=== PATIENT | male | born 1970 | race Caucasian/White ===

== ENCOUNTER 2017-01-23 04:35 | Emergency (ER) | payer SELFPAY ==
[~2017-01-23] VITALS: Ht 182.9 cm; Wt 100.0 kg
[~2017-01-23 04:35] MED LIST: DICL75 PO; HYDR-3534 PO; METH750T2 PO
[2017-01-23 04:44] VITALS: BP 143/84; PULSE 92; RESP 14; TEMP 98.5; O2SAT 97
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
[2017-01-23 07:05] VITALS: BP 121/76; PULSE 69; RESP 18; O2SAT 96
--- NOTE | 2017-01-23 11:47 | PD ---
Physical Exam Narrative Patient was seen by ED physician and medically cleared. Patient was observed in the ED. Patient now awake alert oriented 3 and steady on his feet. He wants to go home. Data Data Last Documented VS Vital Signs Date Time Temp Pulse Resp B/P (MAP) Pulse Ox O2 Delivery O2 Flow Rate FiO2 01/23/17 07:05 69 18 121/76 (91) 96 Room Air 01/23/17 04:44 98.5 Orders Orders Ed Discharge Order (01/23/17 11:44) [facility] Supervised Visit with SERINA: No Diagnosis Primary Impression: Drug overdose Qualified Codes: T50.901A - Poisoning by unspecified drugs, medicaments and biological substances, accidental (unintentional), initial encounter Patient Instructions: General Instructions Additional Instruction: Advised [facility]. Follow-up as needed. Med/Other Pt SpecificInfo: No Meds Exist/No RX given Scripts No Active Prescriptions or Reported Meds Disposition: 01 DISCHARGE HOME Condition: Stable Marty Gleason MD Jan 23, 2017 11:47
== END 2017-01-23 12:56 | disposition home or self-care (01) ==
LOC: NEPE 04:35
DX: T40.601A Poisoning by unspecified narcotics, accidental (unintentional), initial encounter (principal); F17.200 Nicotine dependence, unspecified, uncomplicated
CPT/HCPCS: 99283

== ENCOUNTER 2017-11-22 15:47 | Inpatient (IN) ==
[2017-11-22] MEDS ORDERED: Sod Chloride 0.9% Inj 1,000 ML IV.SIG ONE (16:46)
--- NOTE | 2017-11-22 16:52 | ED ---
HPI General Chief Complaint: Abdominal Pain Stated Complaint: abd pain/syncope Time Seen by Provider: 11/22/17 16:46 Source: patient Mode of arrival: ambulatory Limitations: no limitations History of Present Illness HPI narrative: 47-year-old male patient with history of diverticulitis, status post hemicolectomy done by Dr. Colmenares in the past, ventral hernias, presents to the ER today because he started having worsening abdominal pains which are midline, nausea, vomiting, and states he has had some bouts of diarrhea as well. He states that he has not been able to eat very well for the past 2 days. He denies any fevers or any other symptoms. Related Data Home Medications Medication Instructions Recorded Confirmed No Known Home Medications 11/22/17 11/22/17 Allergies Allergy/AdvReac Type Severity Reaction Status Date / Time No Known Allergies Allergy Verified 11/22/17 16:40 Review of Systems ROS: all other systems reviewed are negative PMFSH History History Provided By: Patient Medical History Medical History Diverticula of colon (Acute) Surgical History Surgical History H/O hemicolectomy (Acute) Social History Social History Substance History: No History of Abuse Second Hand Smoke Exposure: Yes Smoking Status: Current every day smoker Tobacco Type: Cigarettes How Often Do You Have a Drink Containing Alcohol: Never Recent Travel in [place] within the Last 8 Weeks: No Recent Out of Country Travel within the Last 8 Weeks: No Exam Narrative Exam Narrative: GENERAL: Well-developed middle-age male patient currently in moderate distress. Awake and oriented 3. SKIN: Focused skin assessment warm/dry. HEAD: Atraumatic. Normocephalic. EYES: Pupils equal and round. No scleral icterus. No injection or drainage. ENT: No nasal bleeding or discharge. Mucous membranes pink and moist. NECK: Trachea midline. No JVD. CARDIOVASCULAR: Regular rate and rhythm. No murmur appreciated. RESPIRATORY: No accessory muscle use. Clear to auscultation. Breath sounds equal bilaterally. GASTROINTESTINAL: Abdomen soft, diffuse abdominal tenderness without guarding or rebound, nondistended. Hepatic and splenic margins not palpable. MUSCULOSKELETAL: No obvious deformities. No clubbing. No cyanosis. No edema. NEUROLOGICAL: Awake and alert. No obvious cranial nerve deficits. Motor grossly within normal limits. Normal speech. PSYCHIATRIC: Appropriate mood and affect; insight and judgment normal. Course Initial Documented Vital Signs Temperature 97.8 F 11/22/17 16:34 Pulse Rate 80 11/22/17 16:34 Respiratory Rate 17 11/22/17 16:34 Blood Pressure 136/90 11/22/17 16:34 Pulse Oximetry 97 11/22/17 16:34 Last Documented Vital Signs Temperature 97.8 F 11/22/17 16:34 Pulse Rate 91 H 11/22/17 20:00 Respiratory Rate 16 11/22/17 20:00 Blood Pressure 124/80 11/22/17 20:00 Pulse Oximetry 94 L 11/22/17 20:00 Sign Out Sign Out Data: Patient Sign Out occurred on 11/22/17 at 19:35. Patient's care was discussed, and care was transferred from Padmini Boyd MD to Jr Vaughn. Sign Out Comment: Case signed out to Dr. Vaughn at 7 PM awaiting CAT scan, disposition based on CAT scan. Last updated by Padmini Boyd MD at 11/22/17 19:18 Post-Handoff Eval: pt CT SHow early SBO vs incarcerated hernia I was able to manually move bowel butthey came right back out Spoke to Dr Wolff surgery and he will take to OR mostlikely. ADmitted to [facility] Medical Decision Making [facility] Narrative Medical Screen Exam Complete: Yes Emergency Medical Condition: Yes Differential Diagnosis Differential Diagnosis: Gastroenteritis versus pancreatitis versus obstruction versus dehydration versus electrolyte abnormalities Lab Data Result diagrams: 11/22/17 20:30 11/22/17 17:25 Lab Results 11/22/17 11/22/17 11/22/17 Range/Units 17:25 17:25 20:30 WBC 7.0 6.7 (4.0-11.0) th/mm3 RBC 5.47 4.77 (4.50-5.90) mil/mm3 Hgb 15.4 13.7 (13.0-17.0) gm/dL Hct 45.6 39.3 (39.0-51.0) % MCV 83.3 82.4 (80.0-100.0) fL MCH 28.2 28.8 (27.0-34.0) pg MCHC 33.8 35.0 (32.0-36.0) % RDW 13.7 13.9 (11.6-17.2) % Plt Count 184 156 (150-450) th/mm3 MPV 8.2 8.0 (7.0-11.0) fL Neut % (Auto) 79.7 H 76.0 H (16.0-70.0) % Lymph % (Auto) 12.9 15.6 (9.0-44.0) % Mcnairy % (Auto) 6.6 7.6 (0.0-8.0) % Eos % (Auto) 0.7 0.5 (0.0-4.0) % Baso % (Auto) 0.1 0.3 (0.0-2.0) % Neut # (Auto) 5.6 5.1 (1.8-7.7) th/mm3 Lymph # (Auto) 0.9 L 1.0 (1.0-4.8) th/mm3 Mcnairy # (Auto) 0.5 0.5 (0.0-0.9) th/mm3 Eos # (Auto) 0.1 0.0 (0.0-0.4) th/mm3 Baso # (Auto) 0.0 0.0 (0.0-0.2) th/mm3 WBC Differential . . Differential Comment Auto diff final Auto diff final Sodium 142 (136-145) meq/L Potassium 3.9 (3.5-5.1) meq/L Chloride 106 (98-107) meq/L Carbon Dioxide 28.4 (21.0-32.0) meq/L Anion Gap 8 (5-15) meq/L BUN 20 H (7-18) mg/dL Creatinine 0.94 (0.60-1.30) mg/dL Estimated GFR 86 L (>89) mL/min Random Glucose 125 H (74-106) mg/dL Calcium 9.0 (8.5-10.1) mg/dL Total Bilirubin 0.6 (0.2-1.0) mg/dL AST 18 (15-37) U/L ALT 28 (12-78) U/L Alkaline Phosphatase 76 (45-117) U/L Total Protein 7.8 (6.4-8.2) g/dL Albumin 3.8 (3.4-5.0) g/dL Lipase 97 (73-393) U/L Imaging Data Radiologist's impression: Abdomen/Pelvis CT 11/22/17 16:46 CONCLUSION: 1. Anterior abdominal wall hernia located just to the right of the umbilicus containing fluid-filled loops of bowel wall thickening and air-fluid levels. This is of concern for possible strangulation and early obstruction. 2. Second larger abdominal wall hernia containing multiple loops of bowel. 3. Nonspecific bowel gas pattern. Discharge Plan Discharge Disposition Patient Disposition: 30 Still Patient Physicians Team ED Provider: Jr Vaughn Primary Care Provider: Primary Care KateyiArabella Rxs /Orders / Referrals /Forms Prescriptions: No Action No Known Home Medications RF: 0 Discharge Interventions Interventions: Vital Signs Last Done: 11/22/17 20:00 Status ED Status: Admitted Observation Patient
[2017-11-22 17:34] LABS: Baso % (Auto) 0.1 % (0.0-2.0); Eos # (Auto) 0.1 th/mm3 (0.0-0.4); Eos % (Auto) 0.7 % (0.0-4.0); Hematocrit 45.6 % (39.0-51.0); Hemoglobin 15.4 gm/dL (13.0-17.0); Lymph # (Auto) 0.9 th/mm3 (1.0-4.8); Lymph % (Auto) 12.9 % (9.0-44.0); Mean Corpuscular HGB Conc 33.8 % (32.0-36.0); Mean Corpuscular Hemoglobin 28.2 pg (27.0-34.0); Mean Corpuscular Volume 83.3 fL (80.0-100.0); Mean Platelet Volume 8.2 fL (7.0-11.0); Mono # (Auto) 0.5 th/mm3 (0.0-0.9); Mono % (Auto) 6.6 % (0.0-8.0); Neut # (Auto) 5.6 th/mm3 (1.8-7.7); Neut % (Auto) 79.7 % (16.0-70.0); Platelet Count 184 th/mm3 (150-450); Red Blood Count 5.47 mil/mm3 (4.50-5.90); Red Cell Distribution Width 13.7 % (11.6-17.2)
[2017-11-22 17:55] LABS: Alanine Aminotransferase 28 U/L (12-78); Albumin 3.8 g/dL (3.4-5.0); Anion Gap 8 meq/L (5-15); Aspartate Aminotransferase 18 U/L (15-37); Blood Urea Nitrogen 20 mg/dL (7-18); Carbon Dioxide 28.4 meq/L (21.0-32.0); Chloride 106 meq/L (98-107); Glomerular Filtration Rate 86 mL/min (>89); Glucose,Random 125 mg/dL (74-106); Lipase 97 U/L (73-393); Potassium 3.9 meq/L (3.5-5.1); Sodium 142 meq/L (136-145)
[2017-11-22 17:58] LABS: Alkaline Phosphatase 76 U/L (45-117); Total Protein 7.8 g/dL (6.4-8.2)
--- NOTE | 2017-11-22 19:55 | CT ---
EXAM DATE: 11/22/2017 7:44 PM EDT AGE/SEX: 47 years / Male INDICATIONS: Right lower quadrant abdominal pain. CLINICAL DATA: This is the patient's initial encounter. Patient reports that signs and symptoms have been present for 1 week and indicates a pain score of 5/10. MEDICAL/SURGICAL HISTORY: Ulcerative colitis. Umbilical Hernia. Colon resection. ORAL CONTRAST: No oral contrast ingested. RADIATION DOSE: 12.09 CTDI (mGy) COMPARISON: No prior exams available for comparison. TECHNIQUE: Multiple contiguous axial images were obtained through the abdomen and pelvis following b olus infusion of 95 ml Omnipaque 350 (iohexol) nonionic water-soluble contrast as a single exam dos e. No oral contrast ingested. Using automated exposure control and adjustment of the mA and/or kV ac cording to patient size, radiation dose was kept as low as reasonably achievable to obtain optimal di agnostic quality images. DICOM format image data is available electronically for review and comparis on. FINDINGS: Lower Lungs: The visualized lower lungs are clear. Liver: The liver has a homogeneous density without space-occupying lesion. There is no dilation of th e biliary tree. The gallbladder is unremarkable in appearance. Spleen: Homogeneous density without enlargement. Pancreas: Unremarkable without mass or calcification. Kidneys: Normal in size and shape. No evidence of mass or hydronephrosis. Adrenal Glands: Unremarkable. Aorta: The aorta and proximal iliac vessels are grossly unremarkable without aneurysmal dilation. Bowel/Mesentery: There are multiple loops of nondilated air-containing small bowel with multiple air -fluid levels. The bowel adjacent to the lower hernia demonstrates wall thickening and small air-flui d levels. There is no free air or fluid. Abdominal Wall: There is moderate size anterior abdominal wall hernia containing multiple loops of b owel and omentum. The opening of the hernia measures up to approximately 5.6 cm. Just below this leve l is a second focal hernia containing loops of fluid-filled bowel with apparent mild wall thickening. The opening measures approximately 3.3 cm in diameter. This is located just to the right of the umbi licus. Retroperitoneum: No evidence of adenopathy in the retrocrural, para-aortic, or deep pelvic regions. Bladder: Contours are smooth. Reproductive Organs: No abnormal masses or calcifications seen. Inguinal: The inguinal region is unremarkable without evidence of adenopathy. Bony Structures: Unremarkable. CONCLUSION: 1. Anterior abdominal wall hernia located just to the right of the umbilicus containing fluid-filled loops of bowel wall thickening and air-fluid levels. This is of concern for possible strangulation a nd early obstruction. 2. Second larger abdominal wall hernia containing multiple loops of bowel. 3. Nonspecific bowel gas pattern. Electronically signed by: Lawrence Bundy MD 11/22/2017 7:53 PM EDT
[2017-11-22] MEDS ORDERED: Morphine Inj 4 MG/ML Vial IV.PUSH ONE (20:18)
[2017-11-22] MEDS ORDERED: Dextrose 5%/NaCl 0.45% Inj 1,000 ML IV.CONT SCH (20:30)
[2017-11-22 20:47] LABS: Baso % (Auto) 0.3 % (0.0-2.0); Eos % (Auto) 0.5 % (0.0-4.0); Hematocrit 39.3 % (39.0-51.0); Hemoglobin 13.7 gm/dL (13.0-17.0); Lymph % (Auto) 15.6 % (9.0-44.0); Mean Corpuscular Hemoglobin 28.8 pg (27.0-34.0); Mean Corpuscular Volume 82.4 fL (80.0-100.0); Mono # (Auto) 0.5 th/mm3 (0.0-0.9); Mono % (Auto) 7.6 % (0.0-8.0); Neut # (Auto) 5.1 th/mm3 (1.8-7.7); Platelet Count 156 th/mm3 (150-450); Red Blood Count 4.77 mil/mm3 (4.50-5.90); Red Cell Distribution Width 13.9 % (11.6-17.2); White Blood Count 6.7 th/mm3 (4.0-11.0)
[2017-11-22] MEDS ORDERED: Acetaminophen 325 MG Tablet PO PRN (22:37)
[2017-11-22] MEDS ORDERED: HYDROmorphone PF Inj 2 MG/ML Vial IV.PUSH PRN (22:39)
--- NOTE | 2017-11-22 22:42 | P.HPIM ---
History of Present Illness Service: [facility] Primary Care Physician: No Primary Care Physician Chief Complaint: abdominal pain History of Present Illness: 47 y/o male with a history of diverticulosis and a colectomy presented to the ED with complaints of abdominal pain for 2 days. Patient states his pain is sharp, 10/10, constant, throughout his whole abdomen with no radiation and associated nausea. He states the morphine only helped a little and not for long. Denies any chest pain, sob, fever or chills. Review of Systems All other systems reviewed negative except as stated in HPI [facility] - History History Provided By: Patient - Medical History Medical History: Medical History (Last Reviewed 11/22/17 @ 23:43 by CHRISTY Rolle) Diverticula of colon - Surgical History Surgical History: Surgical History (Last Reviewed 11/22/17 @ 23:43 by CHRISTY Rolle) H/O hemicolectomy - Family History Family History: Family History (Last Reviewed 11/22/17 @ 23:43 by CHRISTY Rolle) Other Family history not obtainable due to adoption - Social History I have reviewed the patient's Social History: Yes - Tobacco History Second Hand Smoke Exposure: Yes Tobacco Use In Past 30 Days: Yes Smoking Status: Current every day smoker Tobacco Type: Cigarettes - Alcohol History How Often Do You Have a Drink Containing Alcohol: Never - Substance Use History Substance History: No History of Abuse - Travel History Recent Travel in the [place] Within the Last 8 Weeks: No Recent Travel Out of the Country Within the Last 8 Weeks: No - Immunization History Tetanus Immunization: <5 Years Medications and Allergies Active Medications: Active Medications Acetaminophen (Tylenol) 650 mg PO Q4H PRN PRN Reason: Temp > 100.4 Hydromorphone HCl (Dilaudid Pf Inj) 1 mg IV.PUSH Q4H PRN PRN Reason: Pain 1 to 10 Dextrose/Sodium Chloride (D5w/1/2 Ns Inj) 1,000 mls @ 125 mls/hr IV.CONT .Q8H KERRY Last Admin: 11/22/17 20:33 Dose: 125 mls/hr Sodium Chloride (Ns Inj) 1,000 mls @ 100 mls/hr IV.CONT .Q10H KERRY Ondansetron HCl (Zofran Inj) 4 mg IV.PUSH Q6H PRN PRN Reason: NAUSEA OR VOMITING Sodium Chloride (Ns Flush) 2 ml IV.FLUSH PRN PRN PRN Reason: FLUSH AFTER USING IV ACCESS Last Admin: 11/22/17 20:33 Dose: 2 ml Allergies Allergy/AdvReac Type Severity Reaction Status Date / Time No Known Allergies Allergy Verified 11/22/17 16:40 Home Medications Medication Instructions Recorded Confirmed Type No Known Home Medications 11/22/17 11/22/17 History Exam Vital signs: Vital Signs 11/22/17 16:34 11/22/17 20:00 Temperature 97.8 F Pulse Rate 80 91 H Respiratory Rate 17 16 Blood Pressure 136/90 124/80 Pulse Oximetry 97 94 L Intake & Output 11/22/17 11/22/17 11/23/17 06:59 18:59 06:59 Intake Total 1000 / 1000 Balance 1000 / 1000 Weight 117.934 kg Intake: IV 1000 / 1000 NS Inj 1,000 ML @ Wide Open IV. 1000 / 1000 SIG BOLUS ONE Rx#:[id number] Narrative: GENERAL: This is a well-nourished, well-developed patient, in no apparent distress. CARDIOVASCULAR: Regular rate and rhythm without murmurs, gallops, or rubs. RESPIRATORY: Clear to auscultation. Breath sounds equal bilaterally. No wheezes , rales, or rhonchi. GASTROINTESTINAL: Abdomen soft, tender to palpation, nondistended. Hypo active bowel sounds MUSCULOSKELETAL: Extremities without clubbing, cyanosis, or edema. NEURO: Alert & Oriented x4 to person, place, time, situation. Moves all ext x4 Results - Labs CBC & Chem 7: 11/22/17 20:30 11/22/17 17:25 Labs: Short CBC 11/22/17 11/22/17 Range/Units 17:25 20:30 WBC 7.0 6.7 (4.0-11.0) th/mm3 Hgb 15.4 13.7 (13.0-17.0) gm/dL Hct 45.6 39.3 (39.0-51.0) % Plt Count 184 156 (150-450) th/mm3 BMP 11/22/17 17:25 Sodium 142 Potassium 3.9 Chloride 106 Carbon Dioxide 28.4 BUN 20 H Creatinine 0.94 Calcium 9.0 Liver Function 11/22/17 Range/Units 17:25 Total Bilirubin 0.6 (0.2-1.0) mg/dL AST 18 (15-37) U/L ALT 28 (12-78) U/L Alkaline Phosphatase 76 (45-117) U/L Albumin 3.8 (3.4-5.0) g/dL - Imaging Impressions Abdomen/Pelvis CT 11/22/17 16:46 CONCLUSION: 1. Anterior abdominal wall hernia located just to the right of the umbilicus containing fluid-filled loops of bowel wall thickening and air-fluid levels. This is of concern for possible strangulation and early obstruction. 2. Second larger abdominal wall hernia containing multiple loops of bowel. 3. Nonspecific bowel gas pattern. Caprini VTE Risk Assessment Caprini VTE Risk Assessment: No/Low Risk (score <= 1) Caprini Risk Assessment Model: Point Value = 1 Point Value = 2 Point Value = 3 Point Value = 5 Age 41-60 Minor surgery BMI > 25 kg/m2 Swollen legs Varicose veins or History of unexplained or recurrent spontaneous Oral contraceptives or hormone replacement Sepsis (< 1 month) Serious lung disease, including pneumonia (< 1 month) Abnormal pulmonary function Acute myocardial infarction Congestive heart failure (< 1 month) History of inflammatory bowel disease Medical patient at bed rest Age 61-74 Arthroscopic surgery Major open surgery (> 45 min) Laparoscopic surgery (> 45 min) Malignancy Confined to bed (> 72 hours) Immobilizing plaster cast Central venous access Age >= 75 History of VTE Family history of VTE Factor V Leiden Prothrombin [id number] Lupus anticoagulant Anticardiolipin antibodies Elevated serum homocysteine Heparin-induced thrombocytopenia Other congenital or acquired thrombophilia Stroke (< 1 month) Elective arthroplasty Hip, pelvis, or leg fracture Acute spinal cord injury (< 1 month) Prophylaxis Regimen: Total Risk Factor Score Risk Level Prophylaxis Regimen 0-1 Low Early ambulation 2 Moderate Order ONE of the following: *Sequential Compression Device (SCD) *Heparin 5000 units SQ BID 3-4 Higher Order ONE of the following medications: *Heparin 5000 units SQ TID *Enoxaparin/Lovenox 40 mg SQ daily (WT < 150 kg, CrCl > 30 mL/min) *Enoxaparin/Lovenox 30 mg SQ daily (WT < 150 kg, CrCl > 10-29 mL/min) *Enoxaparin/Lovenox 30 mg SQ BID (WT < 150 kg, CrCl > 30 mL/min) AND/OR *Sequential Compression Device (SCD) 5 or more Highest Order ONE of the following medications: *Heparin 5000 units SQ TID (Preferred with Epidurals) *Enoxaparin/Lovenox 40 mg SQ daily (WT < 150 kg, CrCl > 30 mL/min) *Enoxaparin/Lovenox 30 mg SQ daily (WT < 150 kg, CrCl > 10-29 mL/min) *Enoxaparin/Lovenox 30 mg SQ BID (WT < 150 kg, CrCl > 30 mL/min) AND *Sequential Compression Device (SCD) Assessment and Plan - Plan SBO, lactic 2.[address] reviewed and shows Anterior abdominal wall hernia located just to the right of the umbilicus containing fluid-filled loops of bowel wall thickening and air-fluid levels. -Consult general surgery, Dr. Wolff plans to take patient to OR in AM -NPO, IVF -Pain management with IV Dilaudid DVT prophylaxis: SCDs Discussed Condition With: Patient, RN and ED physician
[2017-11-22 23:26] LABS: Bilirubin,Urine Negative (Negative); Clarity,Urine Clear (Clear); Color,Urine Yellow (Yellw/Straw); Glucose,Urine (UA) Negative (Negative); Leukocyte Esterase,Urine Negative (Negative); Mucus,Urine Few /lpf (Occasional); Nitrite,Urine Negative (Negative)
[2017-11-22] MEDS: Sod Chloride 0.9% Inj 1,000 ML IV.CONT SCH (23:29)
[2017-11-23] MEDS ORDERED: HYDROmorphone PF Inj 2 MG/ML Vial IV.PUSH ONE (00:56)
[2017-11-23 07:55] LABS: Baso % (Auto) 0.4 % (0.0-2.0); Eos # (Auto) 0.1 th/mm3 (0.0-0.4); Eos % (Auto) 3.1 % (0.0-4.0); Hematocrit 39.7 % (39.0-51.0); Hemoglobin 13.5 gm/dL (13.0-17.0); Lymph # (Auto) 1.5 th/mm3 (1.0-4.8); Lymph % (Auto) 31.4 % (9.0-44.0); Mean Corpuscular HGB Conc 33.9 % (32.0-36.0); Mean Corpuscular Hemoglobin 28.4 pg (27.0-34.0); Mean Corpuscular Volume 83.8 fL (80.0-100.0); Mean Platelet Volume 7.9 fL (7.0-11.0); Mono # (Auto) 0.4 th/mm3 (0.0-0.9); Mono % (Auto) 7.7 % (0.0-8.0); Neut # (Auto) 2.7 th/mm3 (1.8-7.7); Neut % (Auto) 57.4 % (16.0-70.0); Platelet Count 140 th/mm3 (150-450); Red Blood Count 4.74 mil/mm3 (4.50-5.90); Red Cell Distribution Width 14.2 % (11.6-17.2); White Blood Count 4.7 th/mm3 (4.0-11.0)
[2017-11-23 08:26] LABS: Anion Gap 6 meq/L (5-15); Blood Urea Nitrogen 13 mg/dL (7-18); Calcium 7.8 mg/dL (8.5-10.1); Carbon Dioxide 26.4 meq/L (21.0-32.0); Chloride 108 meq/L (98-107); Glomerular Filtration Rate Greater Than 89 mL/min (>89); Glucose,Random 99 mg/dL (74-106); Potassium 3.8 meq/L (3.5-5.1); Sodium 140 meq/L (136-145)
[2017-11-23] MEDS: Sod Chloride 0.9% Inj 1,000 ML IV.CONT SCH (08:46)
[2017-11-23] MEDS: HYDROmorphone PF Inj 2 MG/ML Vial IV.PUSH PRN ×4 (08:47→23:50)
[2017-11-23] MEDS ORDERED: Metoprolol Tartrate 25 MG Tablet PO ONE (11:07)
[2017-11-23] MEDS ORDERED: Chlorhexidine Gluconate 2% 1 Pack (2 Cloths) TOPICAL ONE (11:07)
[2017-11-23] MEDS ORDERED: Sodium Chlor 0.9% Inj 500 ML IV.SIG SCH (12:00)
--- NOTE | 2017-11-23 13:34 | ECG ---
Date Performed: 11/23/2017 Time Performed: 01:48:38 PTAGE: 47 years EKG: Sinus rhythm RIGHT BUNDLE BRANCH BLOCK ABNORMAL ECG NO PREVIOUS TRACING DOCTOR: Isaiah Jiménez Interpretating Date/Time 11/23/2017 13:30:15
--- NOTE | 2017-11-23 14:43 | MB ---
cc: Ancelmo Wolff MD DATE: 11/23/2017 CHIEF COMPLAINT: Abdominal wall incarcerated hernia. Consultation Dr. Israel Echols HISTORY OF PRESENT ILLNESS: The patient is a 47-year-old male with history of diverticulitis, status post colectomy 6 years ago. The patient noted about 6 months following procedure to developed an incisional abdominal wall hernia. He states this hernia has been there for multiple years now and intermittently decompresses and bulges out. He states that he has had some pain intermittently with this hernia; however, the last 3 days he has noted the pain has been a significant, severe and persistent. He states the pain has been a 9/10 at times, currently are 4/10 and continuing to get worse. He denies any vomiting, but does have associated nausea. He states the pain is sharp, it is worse with movement, better with lying still. He has a little improvement with morphine pain control. Surgery was consulted for further evaluation. On my exam, the patient has a normal leukocytosis. CT scan evaluation showing a partial colon incarcerated within hernia. PAST MEDICAL HISTORY: Diverticulitis status post sigmoid colectomy. PAST SURGICAL HISTORY: Exploratory laparotomy, left hemicolectomy. SOCIAL HISTORY: Positive smoking, occasional ETOH. Denies IVDA. ALLERGIES: NO KNOWN DRUG ALLERGIES. MEDICATIONS: See MAR. FAMILY HISTORY: The patient is adopted and is unknown to his mother and father family history. REVIEW OF SYSTEMS: GENERAL: Denies fevers, chills. HEENT: Denies eye pain, ear pain. NECK: No swelling or pain. LUNGS: Denies cough or wheeze. HEART: Denies palpitations or chest pain. ABDOMEN: Complains of nausea. Denies vomiting. GENITOURINARY: Denies dysuria or hematuria. ENDOCRINE: Denies polyuria, polydipsia. INTEGUMENT: Denies any masses or lesions. NEUROLOGIC: Denies any numbness or tingling. PSYCHIATRIC: Denies change in mood and sensorium. PHYSICAL EXAMINATION: GENERAL: The patient in no acute distress. VITAL SIGNS: Temperature 97.8, pulse 80, respirations 17, blood pressure 136/90, saturation 97%. HEENT: Pupils equal, round, reactive. NECK: Supple. Trachea midline. LUNGS: Clear to auscultation, bilateral expansion. HEART: S1, S2. Regular rate and rhythm. ABDOMEN: Soft. Positive tenderness to palpation, a central midline incisional scar, nonreducible hernia. No erythema. Mild tenderness to palpation. No peritoneal signs. EXTREMITIES: Warm and well perfused. NEUROLOGIC: GCS of 15, 5/5 motor in all extremities. INTEGUMENT: As above. No masses, other than hernia or lesions. LABORATORY AND DIAGNOSTIC DATA: 1. WBC 4.7, hemoglobin 13.5, hematocrit 39.7, platelets 140. Sodium 140, potassium 3.8, chloride 108, BUN is 13, creatinine 0.7. Lactate is 2. 2. CT reviewed by myself showing incarceration of ventral incisional hernia with colon partial obstruction. PLAN: After a full workup, the patient with the above mentioned issues. At this point, the patient does have incarceration of colon in the hernia, questionable strangulation on scan; however, clinically does not appear so with a normal white count and pain is mild to moderate. Therefore, a discussion with the patient; recommend incisional hernia repair. The patient understands and agrees and would like to proceed. Discussed with him the possibility of doing laparoscopic; however, if adhesions prevent this, may have to convert to open procedure. He is understanding and agrees. Possible bowel resection pending the viability in the bowel. This has been a longstanding hernia and could have significant scar tissue. I have discussed this with the patient in detail. I will plan for a possible hernia repair, possible mesh, possible open. MD SULLY Geller/akshat , 01:26 PM , 01:37 PM TATO
[2017-11-23] MEDS ORDERED: Bupivacaine/Epinephrine Inj 0.25% 50 ML Vial ONE (15:41)
[2017-11-23] MEDS ORDERED: Lidocaine PF 1% Inj 5 ML Syringe INFILTRATN ONE (15:52)
--- NOTE | 2017-11-23 16:10 | P.PN ---
Subjective Interval history: Patient is seen lying comfortably in bed. is at bedside. He reports intermittent abdominal pain at the site of his hernia. Surgery is scheduled for this afternoon. Denies chest pain or shortness of breath. He has no nausea or vomiting, he has been n.p.o. He is urinating normally. Has not had a bowel movement. Physical Exam Vital signs: Vital Signs 11/22/17 16:34 11/22/17 20:00 11/22/17 23:00 Temperature 97.8 F Pulse Rate 80 91 H 83 Respiratory Rate 17 16 16 Blood Pressure 136/90 124/80 135/71 Pulse Oximetry 97 94 L 16 L 11/23/17 00:00 11/23/17 02:00 11/23/17 02:26 Temperature 98.4 F Pulse Rate 77 78 Respiratory Rate 20 17 Blood Pressure 141/86 H Pulse Oximetry 100 11/23/17 04:00 11/23/17 07:18 11/23/17 07:49 Temperature 98.3 F 98.4 F Pulse Rate 72 67 68 Respiratory Rate 21 16 Blood Pressure 124/67 129/81 Pulse Oximetry 96 95 11/23/17 07:55 11/23/17 11:34 Temperature 98.5 F Pulse Rate 67 71 Respiratory Rate 12 Blood Pressure 130/79 Pulse Oximetry 95 Intake & Output 11/22/17 11/23/17 11/23/17 18:59 06:59 18:59 Intake Total 1000 / 1000 1000 / 1000 1000 / 1000 Balance 1000 / 1000 1000 / 1000 1000 / 1000 Weight 117.934 kg 117.934 kg Intake: IV 1000 / 1000 1000 / 1000 1000 / 1000 D5W/1/2 NS Inj 1,000 ML @ 125 1000 / 1000 mls/hr IV.CONT .Q8H [facility] Rx#: [id number] NS Inj 1,000 ML @ 100 mls/hr IV 1000 / 1000 .CONT .Q10H [facility] Rx#:[id number] NS Inj 1,000 ML @ Wide Open IV. 1000 / 1000 SIG [facility] Rx#:[id number] Other: # Voids 1 Date of Last Bowel Movement 11/21/17 Weight On Admission 117.934 kg Narrative: GENERAL: Well-nourished, well-developed adult in no obvious distress. SKIN: Warm and dry. HEAD: Atraumatic. Normocephalic. CARDIOVASCULAR: Regular rate and rhythm. RESPIRATORY: No accessory muscle use. Clear to auscultation. Breath sounds equal bilaterally. GASTROINTESTINAL: Abdomen soft, tender, non-distended. Positive bowel sounds. MUSCULOSKELETAL: Extremities without clubbing, cyanosis, or edema. No obvious deformities. NEUROLOGICAL: Awake and alert. No obvious cranial nerve deficits. Motor grossly within normal limits. Normal speech. PSYCHIATRIC: Appropriate mood and affect; insight and judgment good. Results - Labs CBC & Chem 7: 11/23/17 07:35 11/23/17 07:35 Laboratory Results - last 24 hr 11/22/17 11/22/17 11/22/17 17:25 17:25 20:30 WBC 7.0 6.7 RBC 5.47 4.77 Hgb 15.4 13.7 Hct 45.6 39.3 MCV 83.3 82.4 MCH 28.2 28.8 MCHC 33.8 35.0 RDW 13.7 13.9 Plt Count 184 156 MPV 8.2 8.0 Neut % (Auto) 79.7 H 76.0 H Lymph % (Auto) 12.9 15.6 [place] % (Auto) 6.6 7.6 Eos % (Auto) 0.7 0.5 Baso % (Auto) 0.1 0.3 Neut # (Auto) 5.6 5.1 Lymph # (Auto) 0.9 L 1.0 [place] # (Auto) 0.5 0.5 Eos # (Auto) 0.1 0.0 Baso # (Auto) 0.0 0.0 WBC Differential . . Differential Comment Auto diff final Auto diff final Sodium 142 Potassium 3.9 Chloride 106 Carbon Dioxide 28.4 Anion Gap 8 BUN 20 H Creatinine 0.94 Estimated GFR 86 L Random Glucose 125 H Lactic Acid Calcium 9.0 Total Bilirubin 0.6 AST 18 ALT 28 Alkaline Phosphatase 76 Total Protein 7.8 Albumin 3.8 Lipase 97 Urine Color Urine Clarity Urine pH Ur Specific [place] Urine Protein Urine Glucose (UA) Urine Ketones Urine Occult Blood Urine Nitrate Urine Bilirubin Urine Urobilinogen Ur Leukocyte Esterase Urine RBC Urine WBC Urine Mucus Micro UA Comment Ur Microscopic Review Urine Culture Comments 11/22/17 11/22/17 11/23/17 20:30 22:45 07:35 WBC 4.7 RBC 4.74 Hgb 13.5 Hct 39.7 MCV 83.8 MCH 28.4 MCHC 33.9 RDW 14.2 Plt Count 140 L MPV 7.9 Neut % (Auto) 57.4 Lymph % (Auto) 31.4 [place] % (Auto) 7.7 Eos % (Auto) 3.1 Baso % (Auto) 0.4 Neut # (Auto) 2.7 Lymph # (Auto) 1.5 [place] # (Auto) 0.4 Eos # (Auto) 0.1 Baso # (Auto) 0.0 WBC Differential . Differential Comment Auto diff final Sodium Potassium Chloride Carbon Dioxide Anion Gap BUN Creatinine Estimated GFR Random Glucose Lactic Acid 2.0 Calcium Total Bilirubin AST ALT Alkaline Phosphatase Total Protein Albumin Lipase Urine Color Yellow Urine Clarity Clear Urine pH 6.0 Ur Specific [place] 1.040 H Urine Protein Negative Urine Glucose (UA) Negative Urine Ketones Negative Urine Occult Blood Negative Urine Nitrate Negative Urine Bilirubin Negative Urine Urobilinogen Less than 2 Ur Leukocyte Esterase Negative Urine RBC 1 Urine WBC Less than 1 Urine Mucus Few H Micro UA Comment Culture not ind Ur Microscopic Review Not Reportable Urine Culture Comments Culture not ind 11/23/17 07:35 WBC RBC Hgb Hct MCV MCH MCHC RDW Plt Count MPV Neut % (Auto) Lymph % (Auto) [place] % (Auto) Eos % (Auto) Baso % (Auto) Neut # (Auto) Lymph # (Auto) [place] # (Auto) Eos # (Auto) Baso # (Auto) WBC Differential Differential Comment Sodium 140 Potassium 3.8 Chloride 108 H Carbon Dioxide 26.4 Anion Gap 6 BUN 13 Creatinine 0.71 Estimated GFR Greater than 89 Random Glucose 99 Lactic Acid Calcium 7.8 L D Total Bilirubin AST ALT Alkaline Phosphatase Total Protein Albumin Lipase Urine Color Urine Clarity Urine pH Ur Specific [place] Urine Protein Urine Glucose (UA) Urine Ketones Urine Occult Blood Urine Nitrate Urine Bilirubin Urine Urobilinogen Ur Leukocyte Esterase Urine RBC Urine WBC Urine Mucus Micro UA Comment Ur Microscopic Review Urine Culture Comments - Imaging Impressions Abdomen/Pelvis CT 11/22/17 16:46 CONCLUSION: 1. Anterior abdominal wall hernia located just to the right of the umbilicus containing fluid-filled loops of bowel wall thickening and air-fluid levels. This is of concern for possible strangulation and early obstruction. 2. Second larger abdominal wall hernia containing multiple loops of bowel. 3. Nonspecific bowel gas pattern. Assessment and Plan - Plan Patient is a 47-year-old male with a past medical history of diverticulosis, colectomy and prior hernia who presented to the emergency room with a complaint of abdominal pain for 2 days. Anterior abdominal wall hernia Abdominal CT shows hernia located just to the right of the umbilicus containing fluid-filled loops of bowel wall thickening and air-fluid levels. -Consult general surgery, Dr. Wolff plans to take patient to OR 11/30 -NPO, IVF -Pain management with IV Dilaudid DVT prophylaxis: SCDs Discussed Condition With: Patient, RN and Dr. Car Discharge planning: We will DC home when cleared by GI.
[2017-11-23] MEDS ORDERED: ceFAZolin 2 GM Premix Inj 2 GM/50 ML PIGGYBACK IV.SIG ONE (16:22)
[2017-11-23] MEDS ORDERED: Morphine Inj 4 MG/ML Vial ONE (17:03)
[2017-11-23] MEDS ORDERED: fentaNYL Citrate Inj 100 MCG/2 ML Ampul ONE ×3 (17:03→18:57)
--- NOTE | 2017-11-23 19:05 | P.OP ---
- Preoperative Diagnosis (1) Incarcerated incisional hernia - Postoperative Diagnosis (1) Incarcerated incisional hernia Date of procedure: 11/23/17 Procedure: lap incisional hernia repair x2 Anesthesia: GETA Surgeon: Ancelmo Wolff MD Estimated blood loss (mL): 20 Operation and Findings: hernia x2 [id number] mesh
[2017-11-23] MEDS ORDERED: *morphine SULFATE 4 MG/ML PERIprocedure ONLY ONE ×3 (19:26→20:03)
[2017-11-23] MEDS ORDERED: Lidocaine 5% Patch T-DERMAL ONE (21:09)
[2017-11-23] MEDS ORDERED: oxyCODONE/Acetaminophen 10/325 Tablet PO ONE (22:17)
[2017-11-23] MEDS: ceFAZolin 2 GM Premix Inj 2 GM/100 ML BAG IV.SIG SCH (23:51)
[2017-11-24] MEDS: Sod Chloride 0.9% Inj 1,000 ML IV.CONT SCH ×2 (00:02→06:31)
[2017-11-24] MEDS: HYDROmorphone PF Inj 2 MG/ML Vial IV.PUSH PRN ×2 (03:40→07:42)
[2017-11-24] MEDS: ceFAZolin 2 GM Premix Inj 2 GM/100 ML BAG IV.SIG SCH ×2 (07:45→17:26)
--- NOTE | 2017-11-24 10:06 | P.PN ---
Subjective Interval history: Follow-up incarcerated hernia November 24, 2017-patient seen and examined, status post lap incisional hernia repair 2, patient is complaining of discomfort of abdominal pain however no nausea or vomiting with p.o. intake. Currently afebrile. Physical Exam Vital signs: Vital Signs 11/23/17 11:34 11/23/17 19:06 11/23/17 19:15 Temperature 98.5 F 98.4 F Pulse Rate 71 87 87 Respiratory Rate 12 24 18 Blood Pressure 130/79 164/76 H 164/75 H Pulse Oximetry 95 95 93 L 11/23/17 19:30 11/23/17 19:35 11/23/17 19:45 Temperature Pulse Rate 88 85 Respiratory Rate 24 26 H 26 H Blood Pressure 152/64 H 151/70 H Pulse Oximetry 95 95 11/23/17 20:00 11/23/17 20:03 11/23/17 20:15 Temperature Pulse Rate 82 79 Respiratory Rate 27 H 26 H 26 H Blood Pressure 142/55 H 147/65 H Pulse Oximetry 96 97 11/23/17 20:30 11/23/17 20:45 11/23/17 21:00 Temperature 98 F Pulse Rate 78 77 80 Respiratory Rate 24 20 24 Blood Pressure 160/79 H 153/79 H 140/71 Pulse Oximetry 97 99 99 11/23/17 21:55 11/23/17 23:00 11/24/17 00:00 Temperature 98.1 F 98.3 F Pulse Rate 72 106 H 58 L Respiratory Rate 19 17 Blood Pressure 147/79 H 176/88 H Pulse Oximetry 98 98 11/24/17 00:20 11/24/17 03:37 11/24/17 08:00 Temperature 98.5 F 98.7 F Pulse Rate 69 62 Respiratory Rate 14 21 20 Blood Pressure 169/85 H 133/80 Pulse Oximetry 99 98 Intake & Output 11/23/17 11/24/17 11/24/17 18:59 06:59 18:59 Intake Total 4950 / 4950 100 / 100 100 / 100 Output Total 425 / 425 150 / 150 Balance 4525 / 4525 -50 / -50 100 / 100 Weight 123.6 kg Intake: IV 2150 / 2150 100 / 100 100 / 100 NS Inj 1,000 ML @ 100 mls/hr IV 1999 / 1999 .CONT .Q10H [facility] Rx#:[id number] Ancef 2 GM Premix Inj 2 gm In 100 / 100 100 / 100 100 ml @ 100 mls/hr IV.SIG Q8H [facility] Rx#:[id number] Ancef 2 GM Premix Inj 2 gm In 50 / 50 50 ml @ 0 mls/hr IV.SIG .STK- [facility] Rx#:[id number] Flagyl 500 MG Inj 100 ML @ 0 100 / 100 mls/hr IV.SIG .STK-[facility] ONE Rx#: [id number] Anesthesia Amount 2800 / 2800 Output: Estimated Blood Loss 25 / 25 Urine Amount (Catheter) 400 / 400 150 / 150 Indwelling Urethral Catheter 400 / 400 150 / 150 Narrative: GENERAL: in mild distress SKIN: Warm and dry. HEAD: Normocephalic. EYES: No scleral icterus. No injection or drainage. NECK: Supple, trachea midline. No JVD or lymphadenopathy. CARDIOVASCULAR: Regular rate and rhythm without murmurs, gallops, or rubs. RESPIRATORY: Breath sounds equal bilaterally. No accessory muscle use. GASTROINTESTINAL: Abdomen soft, tender, nondistended. +BS; binder in place MUSCULOSKELETAL: No cyanosis, or edema. BACK: Nontender without obvious deformity. No CVA tenderness. - Urinary Catheter Management Indwelling Urethral Catheter Cath placed during this visit: yes Reason for continuing: Gross Hematuria Insertion date: 11/23/17 Insertion time: 16:30 Results - Labs CBC & Chem 7: 11/23/17 07:35 11/23/17 07:35 - Procedures Lap incisional hernia repair 11/23/17 Assessment and Plan - Plan 47-year-old man with Incarcerated hernia Status post lap incisional hernia repair 2 Management per general surgery Pain management accordingly Continue with abdominal binder Advance diet as tolerated Discharge when medically clear by general surgery Elevated BP No known history of hypertension Likely due to poorly controlled pain management Provide adequate pain management and start Vasotec as needed Hep-Lock IV fluid DVT prophylaxis: Bilateral SCDs
[2017-11-24] MEDS ORDERED: Ketorolac Inj 30 MG/ML (IVP) Vial IV.PUSH SCH (10:15)
[2017-11-24] MEDS ORDERED: HYDROmorphone PF Inj 2 MG/ML Vial IV.PUSH STA (10:17)
[2017-11-24] MEDS: Ketorolac Inj 30 MG/ML (IVP) Vial IV.PUSH SCH ×3 (10:20→22:16)
--- NOTE | 2017-11-24 10:20 | P.PNGS ---
Subjective Patient reports: still having pain (no nausea) Physical Exam Vital signs: Vital Signs 11/23/17 11:34 11/23/17 19:06 11/23/17 19:15 Temperature 98.5 F 98.4 F Pulse Rate 71 87 87 Respiratory Rate 12 24 18 Blood Pressure 130/79 164/76 H 164/75 H Pulse Oximetry 95 95 93 L 11/23/17 19:30 11/23/17 19:35 11/23/17 19:45 Temperature Pulse Rate 88 85 Respiratory Rate 24 26 H 26 H Blood Pressure 152/64 H 151/70 H Pulse Oximetry 95 95 11/23/17 20:00 11/23/17 20:03 11/23/17 20:15 Temperature Pulse Rate 82 79 Respiratory Rate 27 H 26 H 26 H Blood Pressure 142/55 H 147/65 H Pulse Oximetry 96 97 11/23/17 20:30 11/23/17 20:45 11/23/17 21:00 Temperature 98 F Pulse Rate 78 77 80 Respiratory Rate 24 20 24 Blood Pressure 160/79 H 153/79 H 140/71 Pulse Oximetry 97 99 99 11/23/17 21:55 11/23/17 23:00 11/24/17 00:00 Temperature 98.1 F 98.3 F Pulse Rate 72 106 H 58 L Respiratory Rate 19 17 Blood Pressure 147/79 H 176/88 H Pulse Oximetry 98 98 11/24/17 00:20 11/24/17 03:37 11/24/17 08:00 Temperature 98.5 F 98.7 F Pulse Rate 69 62 Respiratory Rate 14 21 20 Blood Pressure 169/85 H 133/80 Pulse Oximetry 99 98 Intake & Output 11/23/17 11/24/17 11/24/17 18:59 06:59 18:59 Intake Total 4950 / 4950 100 / 100 100 / 100 Output Total 425 / 425 150 / 150 Balance 4525 / 4525 -50 / -50 100 / 100 Weight 123.6 kg Intake: IV 2150 / 2150 100 / 100 100 / 100 NS Inj 1,000 ML @ 100 mls/hr IV 1999 .CONT .Q10H [facility] Rx#:[id number] Ancef 2 GM Premix Inj 2 gm In 100 / 100 100 / 100 100 ml @ 100 mls/hr IV.SIG Q8H [facility] Rx#:[id number] Ancef 2 GM Premix Inj 2 gm In 50 / 50 50 ml @ 0 mls/hr IV.SIG .STK- [facility] Rx#:[id number] Flagyl 500 MG Inj 100 ML @ 0 100 / 100 mls/hr IV.SIG .STK-[facility] Rx#: [id number] Anesthesia Amount 2800 / 2800 Output: Estimated Blood Loss 25 / 25 Urine Amount (Catheter) 400 / 400 150 / 150 Indwelling Urethral Catheter 400 / 400 150 / 150 - Constitutional no acute distress - Routine Respiratory Exam Present: CTA bilaterally - Routine Cardiovascular Exam Present: RRR - Routine Abdominal Exam Present: soft (incisional tenderness ) - Urinary Catheter Management Indwelling Urethral Catheter Cath placed during this visit: yes Reason for continuing: Gross Hematuria Insertion date: 11/23/17 Insertion time: 16:30 Assessment and Plan - Plan POD 1 Lap incisional hernia repair plan reg diet oob dvt ppx increase pain control ambulate as tolerated
[2017-11-25] MEDS: Ketorolac Inj 30 MG/ML (IVP) Vial IV.PUSH SCH ×3 (05:25→16:44)
--- NOTE | 2017-11-25 10:38 | P.PN ---
Subjective Interval history: Follow-up incarcerated hernia November 24, 2017-patient seen and examined, status post lap incisional hernia repair 2, patient is complaining of discomfort of abdominal pain however no nausea or vomiting with p.o. intake. Currently afebrile. November 25, 2017-patient seen and examined complains of incisional pain, however patient has not really move much. Currently afebrile. Case discussed with patient and his . Physical Exam Vital signs: Vital Signs 11/24/17 12:00 11/24/17 16:00 11/24/17 19:44 Temperature 97 F L 97.8 F 97.9 F Pulse Rate 68 66 63 Respiratory Rate 16 16 18 Blood Pressure 134/80 128/75 135/68 Pulse Oximetry 99 100 93 L 11/24/17 19:54 11/24/17 23:45 11/25/17 00:13 Temperature 97.3 F L Pulse Rate 67 60 80 Respiratory Rate 18 Blood Pressure 154/79 H Pulse Oximetry 99 11/25/17 03:05 11/25/17 03:20 11/25/17 08:00 Temperature 98.1 F 98.1 F Pulse Rate 74 68 60 Respiratory Rate 18 20 Blood Pressure 147/80 H 143/83 H Pulse Oximetry 96 97 Intake & Output 11/24/17 11/25/17 11/25/17 18:59 06:59 18:59 Intake Total 1060 / 1060 360 / 360 Output Total 900 / 900 800 / 800 Balance 160 / 160 -440 / -440 Weight 123.6 kg Intake: IV 100 / 100 Ancef 2 GM Premix Inj 2 gm In 100 / 100 100 ml @ 100 mls/hr IV.SIG Q8H [facility] Rx#:[id number] Oral 960 / 960 360 / 360 Output: Urine 900 / 900 800 / 800 Stool 0 / 0 Other: Date of Last Bowel Movement 11/22/17 11/22/17 Narrative: GENERAL: NAD SKIN: Warm and dry. HEAD: Normocephalic. EYES: No scleral icterus. No injection or drainage. NECK: Supple, trachea midline. No JVD or lymphadenopathy. CARDIOVASCULAR: Regular rate and rhythm without murmurs, gallops, or rubs. RESPIRATORY: Breath sounds equal bilaterally. No accessory muscle use. GASTROINTESTINAL: Abdomen soft, tender, nondistended. +BS; binder in place MUSCULOSKELETAL: No cyanosis, or edema. BACK: Nontender without obvious deformity. No CVA tenderness. - Urinary Catheter Management Indwelling Urethral Catheter Cath placed during this visit: yes, but has since been removed by the nurse Reason for continuing: Not indwelling catheter Insertion date: 11/23/17 Insertion time: 16:30 Removal date: 11/24/17 Removal time: 14:30 Results - Labs CBC & Chem 7: 11/23/17 07:35 11/23/17 07:35 - Procedures Lap incisional hernia repair 11/23/17 Assessment and Plan - Assessment (1) Incarcerated incisional hernia Code(s): K43.0 - Incisional hernia with obstruction, without gangrene Status: Acute - Plan 47-year-old man with Incarcerated hernia Status post lap incisional hernia repair 2 Management per general surgery Pain management accordingly Continue with abdominal binder Elevated BP No known history of hypertension Likely due to poorly controlled pain management Provide adequate pain management and Vasotec as needed DVT prophylaxis: Bilateral SCDs
--- NOTE | 2017-11-25 10:41 | P.DS ---
Date of admission: 11/22/17 22:37 Primary care physician: No Primary Care Physician Anticipated date of discharge: 11/26/17 Brief History from admission: 47 y/o male with a history of diverticulosis and a colectomy presented to the ED with complaints of abdominal pain for 2 days. Patient states his pain is sharp, 10/10, constant, throughout his whole abdomen with no radiation and associated nausea. He states the morphine only helped a little and not for long. Denies any chest pain, sob, fever or chills. DS: Diagnosis - Discharge Diagnosis (1) Incarcerated incisional hernia Status: Acute DS: Summary Hospital Course: During his hospitalization, neurosurgery was consulted and patient underwent laparoscopy incisional repair of hernia. Pain management was provided accordingly. His diet was advanced as tolerated. Physical therapy was consulted. DVT and GI prophylaxis were provided. Prior to discharge, patient' s condition improved and vitals remained stable. - Time Spent with Patient Total time spent providing and/or coordinating discharge services: Less than 30 minutes - Quality: VTE Deep Vein Thrombosis/Pulmonary Embolism Present on Admission: No Exam Vital signs: Vital Signs 11/24/17 12:00 11/24/17 16:00 11/24/17 19:44 Temperature 97 F L 97.8 F 97.9 F Pulse Rate 68 66 63 Respiratory Rate 16 16 18 Blood Pressure 134/80 128/75 135/68 Pulse Oximetry 99 100 93 L 11/24/17 19:54 11/24/17 23:45 11/25/17 00:13 Temperature 97.3 F L Pulse Rate 67 60 80 Respiratory Rate 18 Blood Pressure 154/79 H Pulse Oximetry 99 11/25/17 03:05 11/25/17 03:20 11/25/17 08:00 Temperature 98.1 F 98.1 F Pulse Rate 74 68 60 Respiratory Rate 18 20 Blood Pressure 147/80 H 143/83 H Pulse Oximetry 96 97 Intake & Output 11/24/17 11/25/17 11/25/17 18:59 06:59 18:59 Intake Total 1060 / 1060 360 / 360 Output Total 900 / 900 800 / 800 Balance 160 / 160 -440 / -440 Weight 123.6 kg Intake: IV 100 / 100 Ancef 2 GM Premix Inj 2 gm In 100 / 100 100 ml @ 100 mls/hr IV.SIG Q8H [facility] Rx#:[id number] Oral 960 / 960 360 / 360 Output: Urine 900 / 900 800 / 800 Stool 0 / 0 Other: Date of Last Bowel Movement 11/22/17 11/22/17 Narrative: GENERAL: NAD SKIN: Warm and dry. HEAD: Normocephalic. EYES: No scleral icterus. No injection or drainage. NECK: Supple, trachea midline. No JVD or lymphadenopathy. CARDIOVASCULAR: Regular rate and rhythm without murmurs, gallops, or rubs. RESPIRATORY: Breath sounds equal bilaterally. No accessory muscle use. GASTROINTESTINAL: Abdomen soft, non-tender, nondistended. Abdominal binder in place MUSCULOSKELETAL: No cyanosis, or edema. BACK: Nontender without obvious deformity. No CVA tenderness. Results Procedures completed during hospitalization: Lap incisional hernia repair 11/23/17 - Impressions ITS Impressions Abdomen/Pelvis CT 11/22/17 16:46 CONCLUSION: 1. Anterior abdominal wall hernia located just to the right of the umbilicus containing fluid-filled loops of bowel wall thickening and air-fluid levels. This is of concern for possible strangulation and early obstruction. 2. Second larger abdominal wall hernia containing multiple loops of bowel. 3. Nonspecific bowel gas pattern. Discharge Plan - Discharge Disposition Patient Disposition: 01 Discharge Home - Discharge Condition Condition: Good - Discharge Order Discharge Orders: Discharge Order (Routine); Ordered 11/25/17 Ordered By: Fabio Smith - Discharge Details Anticipated Discharge Date: 11/25/17 - Physicians Team Primary Care Provider: Primary Care Physici,No Attending Provider: Fabio Smith Other Providers: Surgeons,[facility] ; Ancelmo Wolff MD
[2017-11-25] MEDS ORDERED: Magnesium Citrate Liq 300 ML Bottle PO ONE (11:49)
--- NOTE | 2017-11-25 13:21 | P.PNGS ---
Subjective Patient reports: still having pain, flatus, no bowel movement Physical Exam Vital signs: Vital Signs 11/24/17 16:00 11/24/17 19:44 11/24/17 19:54 Temperature 97.8 F 97.9 F Pulse Rate 66 63 67 Respiratory Rate 16 18 Blood Pressure 128/75 135/68 Pulse Oximetry 100 93 L 11/24/17 23:45 11/25/17 00:13 11/25/17 03:05 Temperature 97.3 F L Pulse Rate 60 80 74 Respiratory Rate 18 Blood Pressure 154/79 H Pulse Oximetry 99 11/25/17 03:20 11/25/17 08:00 11/25/17 10:30 Temperature 98.1 F 98.1 F Pulse Rate 68 60 Respiratory Rate 18 20 18 Blood Pressure 147/80 H 143/83 H Pulse Oximetry 96 97 Intake & Output 11/24/17 11/25/17 11/25/17 18:59 06:59 18:59 Intake Total 1060 / 1060 360 / 360 Output Total 900 / 900 800 / 800 Balance 160 / 160 -440 / -440 Weight 123.6 kg Intake: IV 100 / 100 Ancef 2 GM Premix Inj 2 gm In 100 / 100 100 ml @ 100 mls/hr IV.SIG Q8H [facility] Rx#:[id number] Oral 960 / 960 360 / 360 Output: Urine 900 / 900 800 / 800 Stool 0 / 0 Other: Date of Last Bowel Movement 11/22/17 11/22/17 - Constitutional no acute distress - Routine Respiratory Exam Present: CTA bilaterally - Routine Cardiovascular Exam Present: RRR - Routine Abdominal Exam Present: soft (incisional pain present, c/d/i) - Urinary Catheter Management Indwelling Urethral Catheter Cath placed during this visit: yes, but has since been removed by the nurse Reason for continuing: Not indwelling catheter Insertion date: 11/23/17 Insertion time: 16:30 Removal date: 11/24/17 Removal time: 14:30 Assessment and Plan - Plan POD 2 Lap incisional hernia repair plan reg diet oob dvt ppx po pain control ambulate as tolerated likely d/c tomorrow once pain better controlled
[2017-11-26] MEDS: Ketorolac Inj 30 MG/ML (IVP) Vial IV.PUSH SCH ×3 (00:26→12:34)
--- NOTE | 2017-11-26 10:04 | P.PNGS ---
Subjective Patient reports: still having pain (but much better, amblating ), tolerating a regular diet, voiding w/o difficulty, flatus, bowel movement Physical Exam Vital signs: Vital Signs 11/25/17 10:30 11/25/17 12:00 11/25/17 13:28 Temperature 98.0 F Pulse Rate 65 Respiratory Rate 18 20 18 Blood Pressure 146/80 H Pulse Oximetry 95 11/25/17 16:00 11/25/17 20:00 11/26/17 00:00 Temperature 98.2 F 98.9 F 97.7 F Pulse Rate 76 67 62 Respiratory Rate 18 17 17 Blood Pressure 147/72 H 127/74 134/75 Pulse Oximetry 97 96 96 11/26/17 00:05 11/26/17 04:00 11/26/17 07:10 Temperature 98.5 F Pulse Rate 64 70 Respiratory Rate 18 18 Blood Pressure 132/76 Pulse Oximetry 97 11/26/17 08:00 Temperature 98.5 F Pulse Rate 61 Respiratory Rate 16 Blood Pressure 126/78 Pulse Oximetry 96 Intake & Output 11/25/17 11/26/17 11/26/17 18:59 06:59 18:59 Intake Total 1700 / 1700 Balance 1700 / 1700 Weight 122.4 kg Intake: IV 1100 / 1100 Oral 600 / 600 Other: # Voids 3 1 Date of Last Bowel Movement 11/22/17 11/26/17 - Routine Respiratory Exam Present: CTA bilaterally - Routine Cardiovascular Exam Present: RRR - Routine Abdominal Exam Present: soft (incisional tenderness incisions c/d/i) - Urinary Catheter Management Indwelling Urethral Catheter Cath placed during this visit: yes, but has since been removed by the nurse Reason for continuing: Not indwelling catheter Insertion date: 11/23/17 Insertion time: 16:30 Removal date: 11/24/17 Removal time: 14:30 Assessment and Plan - Plan POD 3 Lap incisional hernia repair plan reg diet oob dvt ppx po pain control d/c home today f/u [address] Wolff
--- NOTE | 2017-11-26 10:42 | P.PN ---
Subjective Interval history: Follow-up incarcerated hernia November 24, 2017-patient seen and examined, status post lap incisional hernia repair 2, patient is complaining of discomfort of abdominal pain however no nausea or vomiting with p.o. intake. Currently afebrile. November 25, 2017-patient seen and examined complains of incisional pain, however patient has not really move much. Currently afebrile. Case discussed with patient and his . November 26, 2017-patient seen and examined, he had a bowel movement and abdominal pain improving. Patient was able to ambulate. Case discussed with general surgery today. Physical Exam Vital signs: Vital Signs 11/25/17 12:00 11/25/17 13:28 11/25/17 16:00 Temperature 98.0 F 98.2 F Pulse Rate 65 76 Respiratory Rate 20 18 18 Blood Pressure 146/80 H 147/72 H Pulse Oximetry 95 97 11/25/17 20:00 11/26/17 00:00 11/26/17 00:05 Temperature 98.9 F 97.7 F Pulse Rate 67 62 64 Respiratory Rate 17 17 Blood Pressure 127/74 134/75 Pulse Oximetry 96 96 11/26/17 04:00 11/26/17 07:10 11/26/17 08:00 Temperature 98.5 F 98.5 F Pulse Rate 70 61 Respiratory Rate 18 18 16 Blood Pressure 132/76 126/78 Pulse Oximetry 97 96 Intake & Output 11/25/17 11/26/17 11/26/17 18:59 06:59 18:59 Intake Total 1700 / 1700 Balance 1700 / 1700 Weight 122.4 kg Intake: IV 1100 / 1100 Oral 600 / 600 Other: # Voids 3 1 Date of Last Bowel Movement 11/22/17 11/26/17 Narrative: GENERAL: NAD SKIN: Warm and dry. HEAD: Normocephalic. EYES: No scleral icterus. No injection or drainage. NECK: Supple, trachea midline. No JVD or lymphadenopathy. CARDIOVASCULAR: Regular rate and rhythm without murmurs, gallops, or rubs. RESPIRATORY: Breath sounds equal bilaterally. No accessory muscle use. GASTROINTESTINAL: Abdomen soft, tender, nondistended. +BS; binder in place MUSCULOSKELETAL: No cyanosis, or edema. BACK: Nontender without obvious deformity. No CVA tenderness. - Urinary Catheter Management Indwelling Urethral Catheter Cath placed during this visit: yes, but has since been removed by the nurse Reason for continuing: Not indwelling catheter Insertion date: 11/23/17 Insertion time: 16:30 Removal date: 11/24/17 Removal time: 14:30 Results - Labs CBC & Chem 7: 11/23/17 07:35 11/23/17 07:35 - Procedures Lap incisional hernia repair 11/23/17 Assessment and Plan - Assessment (1) Incarcerated incisional hernia Code(s): K43.0 - Incisional hernia with obstruction, without gangrene Status: Acute - Plan 47-year-old man with Incarcerated hernia Abdominal pain-improving Status post lap incisional hernia repair 2 Management per general surgery Pain management accordingly Continue with abdominal binder Elevated BP-resolved No known history of hypertension Provide adequate pain management and Vasotec as needed DVT prophylaxis: Bilateral SCDs
[2017-11-26 16:03] VITALS: BP 108/65; PULSE 66; RESP 18; TEMP 98.5; O2SAT 94
--- NOTE | 2017-12-13 13:49 | MP ---
cc: Ancelmo Wolff MD DATE OF OPERATION: 11/23/2017 PREOPERATIVE DIAGNOSIS: Incarcerated incisional hernia. POSTOPERATIVE DIAGNOSIS: Incarcerated incisional hernia. two hernia defects. Abdominal adhesions PROCEDURE PERFORMED: Laparoscopic incisional hernia repair x 2 with underlying mesh, 15 x 20 cm, Synecor. laparoscopic lysis of adhesions ANESTHESIA: GETA. INTRAVENOUS FLUIDS: See anesthesia sheet. ESTIMATED BLOOD LOSS: 5 mL. DRAINS: None. COMPLICATIONS: None. WOUND CLASSIFICATION: Clean. SPECIMENS: None. FINDINGS: Hernia defect x 2 with 1 large defect approximately 10 cm in its largest area with a 5 cm neck and a smaller midline hernia, 1.5 x 1.5 cm. Incarceration of small bowel contained in large hernia. Intraabdominal adhesions INDICATIONS FOR PROCEDURE: This is a 47-year-old male who presents with an acute onset of abdominal pain, nausea and vomiting. The patient noted to have a small-bowel obstruction and incarceration of a previous incisional hernia. The patient came to the emergency department with CT scan findings of large hernia x 2 with incarceration of bowel. A decision was made for operative intervention including laparoscopic hernia repair and reduction of small bowel. Discussed with the patient in detail. DETAILS OF PROCEDURE: The patient was taken to the operating suite and placed in supine position. He was prepped and draped in the usual sterile fashion after induction of general endotracheal anesthesia. A brief timeout was done, stating correct patient, procedure, surgical site, and we were all in agreement with this. Attention was first directed to the left upper quadrant, where a small stab seth incision was made after injection of local anesthetic. The Visiport Optiview trocar was used to enter the abdomen safely. The abdomen was insufflated to 15 mm of pneumoperitoneum. Three other ports were placed, including 1 left lower quadrant 5 mm port, followed by a left lower quadrant 12 mm port and a right upper quadrant 5 mm port. On insufflation, there was noted to be adherent small bowel to a very large hernia defect. This was then manually reduced, and it was noted that a chronic adhesion was stuck to the bowel. Laparoscopic scissors was done to tease the bowel from the hernia sac. This was done. Also, electric Bovie cautery was used to lyse adhesions and further mobilization. The hernia sac was incised and removed. A second smaller hernia defect was noted as well. The hernia sac was also reduced as well. A #1 nonabsorbable V-Loc suture was used to close the defect in a running fashion to both the small and large defects. A 15 x 20 Synecor mesh was obtained. The mesh sutures were placed at the 12 o'clock, 6 o'clock, 3 o'clock and 9 o'clock positions using 0 Willis sutures. The mesh was rolled and placed within the abdomen. The transfascial sutures were tacked against the anterior abdominal wall again in the 12 o'clock, 6 o'clock, 3 o'clock and 9 o'clock positions. These were done through small stab seth incisions. Next, the mesh covered both defects appropriately with good overlap for underlay mesh. The tacker was used to tack the periphery of the mesh around the border and again noted to be nice and taut and lying on the anterior abdominal wall. Next, the small bowel that had been lysed off the anterior abdominal wall and hernia sac, a small 0 Vicryl loop was placed around this for bleeding point control. Omentum was then placed. Next, the pneumoperitoneum was removed. The ports were removed. The 12 port was closed with a 0 Vicryl [id number] and 4-0 Monocryl was placed at all subcuticular sutures. Sterile dressings including Mastisol and Steri-Strips were placed. A binder was then placed. The patient tolerated the procedure well. There were no intraoperative complications. All lap and instrument counts were correct at the end of the procedure. The patient was extubated and taken stable to the PACU. MD SULLY Geller/trina , 01:08 PM , 01:21 PM TATO
== END 2017-11-26 19:00 | disposition home or self-care (01) ==
LOC: NEPC 15:47 → NEDA 15:47 → NEPGCP 11-23 00:31 → N07 11-23 15:57 → N06 11-23 21:28
PROVIDERS: ADMIT Family Medicine; ATTEND Family Medicine